=== PATIENT | female | born 1960 | race Caucasian/White ===

== ENCOUNTER 2017-04-05 09:50 | Outpatient (CLI) | payer OTHER | END 2017-04-05 18:38 | disposition home or self-care (01) | LOC: SMA 09:50 | PROVIDERS: ATTEND Specialist | DX: Z12.31 Encounter for screening mammogram for malignant neoplasm of breast (principal) | CPT/HCPCS: G0202 ==

== ENCOUNTER 2018-04-03 09:08 | Outpatient (CLI) | payer OTHER | END 2018-04-03 19:57 | disposition home or self-care (01) | LOC: SMA 09:08 | PROVIDERS: ATTEND Specialist | DX: Z12.31 Encounter for screening mammogram for malignant neoplasm of breast (principal) | CPT/HCPCS: 77067 ==

== ENCOUNTER 2019-05-14 10:08 | Outpatient (CLI) | payer OTHER | END 2019-05-14 20:40 | disposition home or self-care (01) | LOC: SMA 10:08 | PROVIDERS: ATTEND Specialist | DX: Z12.31 Encounter for screening mammogram for malignant neoplasm of breast (principal) | CPT/HCPCS: 77067 ==

== ENCOUNTER 2019-10-23 11:10 | Day surgery (SDC) | payer OTHER, SELFPAY ==
[~2019-10-23] VITALS: Ht 160 cm; Wt 57.2 kg
[~2019-10-23 11:10] MED LIST: CEFAZOLIN SOD 2 GM in D5W 50 ML IV ONE
[2019-10-23 11:18] LABS: BILIRUBIN,URINE NEGATIVE (NEGATIVE); BLOOD, URINE NEGATIVE (NEGATIVE); CLARITY/URINE CLEAR (CLEAR); COLOR,URINE YELLOW (YELLOW); GLUCOSE,URINE NEGATIVE (NEGATIVE); KETONES,URINE NEGATIVE (NEGATIVE); LEUKOCYTE ESTERASE ,URINE NEGATIVE (NEGATIVE); NITRITE, URINE NEGATIVE (NEGATIVE); PROTEIN URINE NEGATIVE (NEGATIVE); UROBILINOGEN,URINE 0.2 (0.2-1.0)
[2019-10-23 11:21] LABS: HCG,QUAL RESULT NEGATIVE (NEGATIVE)
[2019-10-23] MEDS ORDERED: fentaNYL CITRATE/PF 100 MCG/2 ML AMP IVP PRN ×2 (11:45)
[2019-10-23] MEDS ORDERED: ONDANSETRON HCL 4 MG/2 ML VIAL IVP PRN ×3 (11:45→13:00)
[2019-10-23] MEDS ORDERED: SEVOFLURANE 15 MIN GAS INH ONE (13:00)
[2019-10-23] MEDS ORDERED: OXYCODONE/ACETAMINOPHEN 5-325 TABLET PO PRN ×2 (13:00)
[2019-10-23] MEDS ORDERED: MIDAZOLAM HCL 5 MG/ML VIAL (VERSED) IV ONE (13:00)
[2019-10-23] MEDS ORDERED: fentaNYL CITRATE/PF 100 MCG/2 ML AMP ONE ×2 (13:00→13:30)
[2019-10-23] MEDS ORDERED: PROPOFOL 200MG/ 20ML VIAL (DIPRIVAN) IV ONE (13:00)
[2019-10-23] MEDS ORDERED: LIDOCAINE/EPI 1% 1:100000 20 ML VIAL INJ ONE (13:00)
[2019-10-23] MEDS ORDERED: LR 1,000 ML IV.SOLN IV ONE (13:00)
[2019-10-23] MEDS ORDERED: BUPIVACAINE /PF 0.25% 30 ML VIAL INJ ONE (13:00)
[2019-10-23] MEDS ORDERED: HYDROcodone/ACETAMIN 5-325 MG TAB (NORCO/ VICODIN) PO PRN (13:00)
[2019-10-23] MEDS ORDERED: NS IRRIG SOLN 1000 ML IR ONE (13:00)
[2019-10-23] MEDS ORDERED: ONDANSETRON HCL 4 MG/2 ML VIAL ONE (15:17)
[2019-10-23] MEDS ORDERED: OXYCODONE/ACETAMINOPHEN 5-325 TABLET ONE (15:38)
[2019-10-23 16:24] VITALS: BP_SYST 138
== END 2019-10-23 16:15 | disposition home or self-care (01) ==
LOC: SDS 11:10 → SMU 12:58 → SDS 16:15
PROVIDERS: ATTEND Specialist
DX: K40.90 Unilateral inguinal hernia, without obstruction or gangrene, not specified as recurrent (principal); N85.00 Endometrial hyperplasia, unspecified; E78.00 Pure hypercholesterolemia, unspecified; I10 Essential (primary) hypertension; Z88.0 Allergy status to penicillin; Z11.59 Encounter for screening for other viral diseases
CPT/HCPCS: 49505; 58558; 81003; 84703; 88302; 88305; C1819; J0690; J2250; J2405; J2704; J3010; J3490; J7060; J7120; U0003

== ENCOUNTER 2021-09-03 09:35 | Outpatient (CLI) | payer OTHER | END 2021-09-03 20:54 | disposition home or self-care (01) | LOC: SMA 09:35 | PROVIDERS: ATTEND Specialist | DX: Z12.31 Encounter for screening mammogram for malignant neoplasm of breast (principal); N64.89 Other specified disorders of breast | CPT/HCPCS: 77067 ==

== ENCOUNTER 2023-01-26 14:47 | Outpatient (CLI) | payer OTHER | END 2023-01-26 19:41 | disposition home or self-care (01) | LOC: SMA 14:47 | PROVIDERS: ATTEND Physician Assistant | DX: Z12.31 Encounter for screening mammogram for malignant neoplasm of breast (principal) | CPT/HCPCS: 77067 ==